=== PATIENT | female | born 1975 | race African-American/Black ===

== ENCOUNTER 2018-03-04 15:35 | Inpatient (IN) | payer BC, MEDICAID ==
[~2018-03-04] VITALS: Ht 170.2 cm; Wt 116.7 kg
[~2018-03-04 15:35] MED LIST: AMLO5TAB88 PO; ASPI-1159 PO; ATOR10TA PO; BENA1TAB18 PO; CHOL100053 PO; CLOB15CR5 TD; CYCL10TA7 PO; FOLI-43 PO; GABA-290 PO; HYDR200T80 PO; LEVO50TA8 PO; METH2.5T PO; MYCO500T PO
[2018-03-04] MEDS ORDERED: METHYLPREDNISOLONE SOD SUCC 125 MG/2 ML VIAL IV STA (15:47)
[2018-03-04] MEDS ORDERED: ALBUTEROL (0.083%) 2.5MG/3ML NEB HHN STA (15:47)
[2018-03-04] MEDS ORDERED: FAMOTIDINE 20MG/2ML VIAL IV ONE (16:00)
[2018-03-04] MEDS ORDERED: RACEPINEPHRINE 2.25% 0.5ML NEB VIAL HHN ONE (16:00)
[2018-03-04] MEDS ORDERED: DIPHENHYDRAMINE 50MG/ML VIAL IV ONE (16:00)
[2018-03-04] MEDS ORDERED: EPINEPHRINE 1:1000 1 MG/ML AMP INJ ONE (16:00)
[2018-03-04 16:42] LABS: BASOPHILS % 0.6 % (0.0-2.0); EOSINOPHILS % 1.5 % (0.0-5.0); HEMATOCRIT. 40.4 % (36.0-48.0); HEMOGLOBIN. 13.4 g/dL (12.0-16.0); LYMPHOCYTES % 23.8 % (20.0-50.0); MEAN CORPUSCULAR HEMOGLOBIN 29.6 pg (28.0-32.0); MEAN CORPUSCULAR VOLUME 89.2 fL (81.0-99.0); MEAN PLATELET VOLUME 9.7 fl (7.4-10.4); MONOCYTES % 6.2 % (2.0-8.0); NEUTROPHILS % 67.9 % (40.0-76.0); PLATELET 218 x1000/uL (130-400); RED BLOOD CELL COUNT 4.53 mill/uL (4.2-5.4)
[2018-03-04 16:54] LABS: HCG SCREEN NEGATIVE
[2018-03-04 16:55] LABS: D-DIMER 0.27 mg/L FEU (<0.50); INR 1.2; PARTIAL THROMBOPLASTIN TIME 32.9 sec (23.4-31.0); PROTHROMBIN TIME 12.3 sec (9.1-11.1)
[2018-03-04 16:56] LABS: CHLORIDE 105 mEq/L (98-107)
[2018-03-04] MEDS ORDERED: ONDANSETRON HCL 4MG/2ML INJ IV ONE (17:15)
[2018-03-04] MEDS ORDERED: SODIUM CHLORIDE 0.9% 1000ML BAG (SEPSIS BOLUS) IV ONE (19:00)
[2018-03-04] MEDS ORDERED: LEVOFLOXACIN 750MG PREMIX 150 ML IV ONE (19:00)
[2018-03-04] MEDS ORDERED: LORAZEPAM 2MG/ML CPJ IV ONE (19:15)
[2018-03-05 06:00] LABS: CLARITY URINE CLOUDY (CLEAR); COLOR URINE YELLOW (YELLOW); KETONES URINE 2+ (NEGATIVE); LEUKOCYTE ESTERASE URINE NEGATIVE (NEGATIVE); NITRITE URINE NEGATIVE (NEGATIVE); OCCULT BLOOD URINE NEGATIVE (NEGATIVE); PH URINE 5.5 (4.5-8.0); PROTEIN URINE 1+ (NEGATIVE); SPECIFIC GRAVITY URINE 1.022 (1.005-1.030); UROBILINOGEN URINE 0.2 E.U./dL (0.2-1.0)
[2018-03-05 06:24] LABS: *AMPHETAMINES SCREEN URINE NEGATIVE (NEGATIVE); *BARBITURATES SCREEN URINE NEGATIVE (NEGATIVE); *BENZODIAZEPINES SCREEN URINE NEGATIVE (NEGATIVE); *COCAINE SCREEN URINE NEGATIVE (NEGATIVE); CANNABINOID URINE SCREEN NEGATIVE (NEGATIVE); METHADONE URINE SCREEN NEGATIVE (NEGATIVE); PHENCYCLIDINE URINE SCREEN NEGATIVE (NEGATIVE)
[2018-03-05 07:04] LABS: OPIATES URINE SCREEN PRESUMTIVE POSITIVE (NEGATIVE)
[2018-03-05] MEDS ORDERED: ONDANSETRON HCL 4MG/2ML INJ IV PRN ×2 (08:30→14:30)
[2018-03-05] MEDS ORDERED: ACETAMINOPHEN 325MG TABLET PO PRN ×2 (08:30→14:30)
[2018-03-05] MEDS ORDERED: IPRATROPIUM/ALBUTEROL 0.5-3(2.5)MG/3ML NEB HHN PRN (08:30)
[2018-03-05 09:25] LABS: CREATINE KINASE MB FRACTION 6.5 ng/mL (0.5-3.6)
[2018-03-05] MEDS ORDERED: SODIUM CHLORIDE 0.45% 1,000 ML IV SCH (10:30)
[2018-03-05] MEDS ORDERED: ASPIRIN 325MG EC TABLET PO NR (10:56)
[2018-03-05] MEDS ORDERED: IODIXANOL 320MG/ML 100 ML BOTTLE IV ONE (12:22)
[2018-03-05] MEDS ORDERED: LIDOCAINE HCL 1% 20ML VIAL (Pyxis) INJ ONE (12:22)
[2018-03-05] MEDS ORDERED: HEPARIN 5000 UNITS/ML VIAL IV ONE (12:22)
[2018-03-05] MEDS ORDERED: MIDAZOLAM HCL 2 MG/2 ML VIAL ONE (13:50)
[2018-03-05] MEDS ORDERED: FENTANYL CITRATE/PF 50MCG/ML 2ML VIAL ONE (13:50)
[2018-03-05] MEDS ORDERED: ATROPINE SULFATE 1MG/10ML SYR IV PRN (14:30)
[2018-03-05 14:52] VITALS: BP 123/88
[2018-03-05 16:00] VITALS: BP 120/87
[2018-03-05] MEDS ORDERED: HEPARIN SODIUM 1,000 UNIT/1ML VIAL IV ONE (16:20)
[2018-03-05] MEDS ORDERED: NICARDIPINE 100MCG/ML 10ML VIAL (CATH LAB) IV ONE (16:20)
[2018-03-05] MEDS ORDERED: NITROGLYCERIN 50MCG/ML 10ML VIAL (CATH LAB) IV ONE (16:20)
[2018-03-05] MEDS ORDERED: CLONIDINE 0.1MG TABLET PO PRN (16:25)
[2018-03-05] MEDS ORDERED: PANTOPRAZOLE SODIUM 40 MG/VIAL IV NR (16:26)
[2018-03-05] MEDS ORDERED: SODIUM CHLORIDE 0.45% 1,000 ML IV ONE (16:36)
[2018-03-05] MEDS ORDERED: CLOPIDOGREL 75MG TABLET PO NR (16:41)
[2018-03-05 18:00] VITALS: BP 125/86
[2018-03-05] MEDS ORDERED: LEVOFLOXACIN 500MG PREMIX 100 ML IV SCH (18:30)
[2018-03-05] MEDS: MORPHINE SULFATE 4 MG/ML CPJ (NOT FOR IM USE) IV PRN (18:47)
[2018-03-05 20:00] VITALS: BP 125/69
[2018-03-05] MEDS: ATORVASTATIN CALCIUM 40MG TABLET PO SCH (20:30)
[2018-03-05 22:00] VITALS: BP 118/67
[2018-03-06] VITALS (12 sets, daily range): BP systolic 100–136; BP diastolic 59–72
[2018-03-06] MEDS: LEVOTHYROXINE SODIUM 50MCG TABLET PO SCH (05:36)
[2018-03-06 07:21] LABS: BASOPHILS % 0.3 % (0.0-2.0); EOSINOPHILS % 0.2 % (0.0-5.0); HEMOGLOBIN. 11.6 g/dL (12.0-16.0); LYMPHOCYTES % 21.2 % (20.0-50.0); MEAN CORPUSCULAR HEMOGLOBIN 29.9 pg (28.0-32.0); MEAN CORPUSCULAR VOLUME 88.5 fL (81.0-99.0); MONOCYTES % 5.1 % (2.0-8.0); NEUTROPHILS % 73.2 % (40.0-76.0); RED BLOOD CELL COUNT 3.86 mill/uL (4.2-5.4)
[2018-03-06 07:56] LABS: HEMATOCRIT. 34.2 % (36.0-48.0)
[2018-03-06] MEDS: ASPIRIN 325MG TABLET PO SCH (08:48)
[2018-03-06] MEDS: PANTOPRAZOLE SODIUM 40 MG/VIAL IV SCH (08:48)
[2018-03-06] MEDS: AMLODIPINE 2.5MG TABLET PO SCH (08:48)
[2018-03-06] MEDS: CLOPIDOGREL 75MG TABLET PO SCH (08:49)
[2018-03-06] MEDS: MORPHINE SULFATE 4 MG/ML CPJ (NOT FOR IM USE) IV PRN (09:08)
[2018-03-06 11:33] LABS: MEAN PLATELET VOLUME 10.7 fl (7.4-10.4); PLATELET 165 x1000/uL (130-400)
[2018-03-06 14:30] LABS: CHLORIDE 109 mEq/L (98-107)
[2018-03-06 14:41] LABS: CREATINE KINASE 82 IU/L (26-192)
[2018-03-06 14:44] LABS: CREATINE KINASE MB FRACTION 3.2 ng/mL (0.5-3.6)
[2018-03-06] MEDS ORDERED: LEVOFLOXACIN 500MG PREMIX 100 ML IV SCH (19:30)
[2018-03-06] MEDS: GUAIFENESIN 600MG ER TABLET PO SCH (20:38)
[2018-03-06] MEDS: ATORVASTATIN CALCIUM 40MG TABLET PO SCH (20:38)
[2018-03-06] MEDS: IPRATROPIUM/ALBUTEROL 0.5-3(2.5)MG/3ML NEB HHN SCH (22:07)
[2018-03-07] VITALS (8 sets, daily range): BP systolic 113–131; BP diastolic 59–88
[2018-03-07] MEDS ORDERED: OMEP20TA15 PO (00:22)
[2018-03-07] MEDS ORDERED: MELO-104 PO (00:23)
[2018-03-07] MEDS ORDERED: NORT25CA PO (00:24)
[2018-03-07] MEDS: IPRATROPIUM/ALBUTEROL 0.5-3(2.5)MG/3ML NEB HHN SCH ×3 (03:29→14:45)
[2018-03-07] MEDS: LEVOTHYROXINE SODIUM 50MCG TABLET PO SCH (06:13)
[2018-03-07 07:59] LABS: BASOPHILS % 0.6 % (0.0-2.0); HEMATOCRIT. 33.5 % (36.0-48.0); HEMOGLOBIN. 11.4 g/dL (12.0-16.0); MEAN CORPUSCULAR HEMOGLOBIN 30.3 pg (28.0-32.0); MEAN CORPUSCULAR VOLUME 89.1 fL (81.0-99.0); MEAN PLATELET VOLUME 10.1 fl (7.4-10.4); MONOCYTES % 5.4 % (2.0-8.0); PLATELET 206 x1000/uL (130-400); RED BLOOD CELL COUNT 3.76 mill/uL (4.2-5.4)
[2018-03-07] MEDS: CLOPIDOGREL 75MG TABLET PO SCH (08:06)
[2018-03-07] MEDS: PANTOPRAZOLE SODIUM 40 MG/VIAL IV SCH (08:06)
[2018-03-07] MEDS: ASPIRIN 325MG TABLET PO SCH (08:06)
[2018-03-07] MEDS: GUAIFENESIN 600MG ER TABLET PO SCH (08:07)
[2018-03-07] MEDS: AMLODIPINE 2.5MG TABLET PO SCH (08:07)
[2018-03-07] MEDS: MORPHINE SULFATE 4 MG/ML CPJ (NOT FOR IM USE) IV PRN (09:03)
[2018-03-07 09:24] LABS: CHLORIDE 109 mEq/L (98-107)
[2018-03-07] MEDS ORDERED: POTASSIUM CHLORIDE 20MEQ TABLET SR PO NR (10:00)
[2018-03-07] MEDS ORDERED: CARVEDILOL 3.125 MG TABLET PO SCH (10:00)
[2018-03-07] MEDS ORDERED: LOSARTAN POTASSIUM 25 MG TABLET PO SCH (10:00)
== END 2018-03-07 14:30 | disposition home or self-care (01) | DRG 280 ==
LOC: ER 15:35 → 3WST 21:01
PROVIDERS: ADMIT Internal Medicine; ATTEND Internal Medicine
PROC: 4A023N7 Measurement of Cardiac Sampling and Pressure, Left Heart, Percutaneous Approach (ICD-10-PCS; principal; 2018-03-05)
PROC: B2111ZZ Fluoroscopy of Multiple Coronary Arteries using Low Osmolar Contrast (ICD-10-PCS; 2018-03-05)
PROC: B2151ZZ Fluoroscopy of Left Heart using Low Osmolar Contrast (ICD-10-PCS; 2018-03-05)
PROC: 05HY33Z Insertion of Infusion Device into Upper Vein, Percutaneous Approach (ICD-10-PCS; 2018-03-05)
PROC: B54MZZA Ultrasonography of Right Upper Extremity Veins, Guidance (ICD-10-PCS; 2018-03-05)
DX: I21.4 Non-ST elevation (NSTEMI) myocardial infarction (principal); J96.00 Acute respiratory failure, unspecified whether with hypoxia or hypercapnia; I50.22 Chronic systolic (congestive) heart failure; I42.0 Dilated cardiomyopathy; E87.2 Acidosis; E44.1 Mild protein-calorie malnutrition; Z68.41 Body mass index [BMI] 40.0-44.9, adult; I20.1 Angina pectoris with documented spasm; I11.0 Hypertensive heart disease with heart failure; I73.00 Raynaud's syndrome without gangrene; M32.9 Systemic lupus erythematosus, unspecified; E78.00 Pure hypercholesterolemia, unspecified; E66.9 Obesity, unspecified; G62.9 Polyneuropathy, unspecified; E78.5 Hyperlipidemia, unspecified; E03.9 Hypothyroidism, unspecified; K21.9 Gastro-esophageal reflux disease without esophagitis; M79.7 Fibromyalgia; Z82.49 Family history of ischemic heart disease and other diseases of the circulatory system; Z90.49 Acquired absence of other specified parts of digestive tract; Z98.51 Tubal ligation status; Z79.82 Long term (current) use of aspirin; Z79.899 Other long term (current) drug therapy; Z71.3 Dietary counseling and surveillance
CPT/HCPCS: 36415; 36569; 70360; 70490; 71045; 76937; 80048; 80061; 80305; 82550; 82553; 83605; 83735; 83880; 84443; 84484; 84703; 85379; 93005; 93306; 93458; 94640; 96365; 96366; 96375; 97112; 97116; 97162; 99291; C1725; C1769; C1893; C9113; J1200; J1644; J1956; J2060; J2250; J2270; J2930; J3010; J3490; J7040; J7050; J7611; J7620; Q9967

== ENCOUNTER 2018-08-22 17:04 | Emergency (ER) | payer BC, MEDICAID ==
[~2018-08-22] VITALS: Ht 170.2 cm; Wt 91.0 kg
[~2018-08-22 17:04] MED LIST changes: -AMLO5TAB88 PO; -ASPI-1159 PO; -ATOR10TA PO; -BENA1TAB18 PO; +MELO-104 PO; +NORT25CA PO; +OMEP20TA15 PO
[2018-08-22 17:16] VITALS: BP 145/84
[2018-08-22] MEDS ORDERED: NAPROXEN 375MG TABLET PO SCH (21:00)
== END 2018-08-22 18:44 | disposition home or self-care (01) ==
LOC: ER 17:42
DX: M25.472 Effusion, left ankle (principal); K21.9 Gastro-esophageal reflux disease without esophagitis; I10 Essential (primary) hypertension; Z90.49 Acquired absence of other specified parts of digestive tract; Z90.89 Acquired absence of other organs; Z98.51 Tubal ligation status; Z79.899 Other long term (current) drug therapy
CPT/HCPCS: 73610; 73630; 81025; 99283; Z7610

== ENCOUNTER 2018-12-18 09:59 | Emergency (ER) | payer MEDICAID ==
[~2018-12-18] VITALS: Ht 170.2 cm; Wt 113.0 kg
[2018-12-18] MEDS ORDERED: METOCLOPRAMIDE HCL 10MG/2ML VIAL IV ONE (11:00)
[2018-12-18] MEDS ORDERED: DIPHENHYDRAMINE 50MG/ML VIAL IV ONE (11:00)
[2018-12-18] MEDS ORDERED: MECLIZINE 25MG TABLET PO ONE (11:00)
[2018-12-18] MEDS ORDERED: ACETAMINOPHEN 325MG TABLET PO ONE (11:00)
[2018-12-18] MEDS ORDERED: SODIUM CHLORIDE 0.9% 1,000 ML IV ONE (11:00)
[2018-12-18 11:18] LABS: BASOPHILS % 0.6 % (0.0-2.0); EOSINOPHILS % 1.5 % (0.0-5.0); HEMATOCRIT. 34.7 % (36.0-48.0); HEMOGLOBIN. 11.1 g/dL (12.0-16.0); LYMPHOCYTES % 20.7 % (20.0-50.0); MEAN CORPUSCULAR HEMOGLOBIN 27.1 pg (28.0-32.0); MEAN CORPUSCULAR VOLUME 84.5 fL (81.0-99.0); MEAN PLATELET VOLUME 9.2 fl (7.4-10.4); MONOCYTES % 5.1 % (2.0-8.0); NEUTROPHILS % 72.1 % (40.0-76.0); PLATELET 259 x1000/uL (130-400); RED BLOOD CELL COUNT 4.11 mill/uL (4.2-5.4); RED CELL DISTRIBUTION WIDTH 14.6 % (11.6-14.6)
[2018-12-18 11:24] LABS: CHLORIDE 107 mEq/L (98-107)
[2018-12-18 12:50] LABS: CLARITY URINE CLEAR (CLEAR); COLOR URINE YELLOW (YELLOW); KETONES URINE NEGATIVE (NEGATIVE); LEUKOCYTE ESTERASE URINE TRACE (NEGATIVE); NITRITE URINE NEGATIVE (NEGATIVE); OCCULT BLOOD URINE NEGATIVE (NEGATIVE); PH URINE 5.5 (4.5-8.0); PROTEIN URINE NEGATIVE (NEGATIVE); SPECIFIC GRAVITY URINE 1.007 (1.005-1.030); UROBILINOGEN URINE 0.2 E.U./dL (0.2-1.0)
[2018-12-18 15:50] VITALS: BP 140/80
== END 2018-12-18 15:51 | disposition home or self-care (01) ==
LOC: ER 10:20
DX: J02.9 Acute pharyngitis, unspecified (principal); R51 Headache; R42 Dizziness and giddiness; J45.909 Unspecified asthma, uncomplicated; K21.9 Gastro-esophageal reflux disease without esophagitis; I25.2 Old myocardial infarction; M79.7 Fibromyalgia; I10 Essential (primary) hypertension; Z90.49 Acquired absence of other specified parts of digestive tract; Z90.89 Acquired absence of other organs; Z98.51 Tubal ligation status; Z79.899 Other long term (current) drug therapy
CPT/HCPCS: 36415; 70450; 71045; 80048; 81003; 81025; 84484; 85025; 93005; 96361; 96374; 96375; 99284; J1200; J2765; J7030; J8597; Z7610